=== PATIENT | male | born 1930 | race Caucasian/White ===

== ENCOUNTER 2020-11-06 12:13 | Inpatient (IN) ==
[2020-11-06] MEDS ORDERED: LEVOFLOXACIN 750 MG/150 ML BAG IV ONE (12:41)
[2020-11-06] MEDS ORDERED: VANCOMYCIN 1,000 MG in 0.9 % SODIUM CHLORIDE 250 ML IV ONE (12:41)
[2020-11-06] MEDS ORDERED: 0.9 % SODIUM CHLORIDE 1,000 ML IV ONE (12:41)
--- NOTE | 2020-11-06 13:20 | Emergency Department Note ---
HPI General Chief complaint: Recheck/Abnormal Lab/Rx Stated complaint: wound Time Seen by Provider: 11/06/20 12:41 Source: patient, family and EMS Mode of arrival: EMS Limitations: language barrier (Patient is slow to speak but is able to communicate. Son does most of his history.) History of Present Illness HPI Narrative: Narrative: 89-year-old male who is paraplegic was seen yesterday by myself. Patient had mu ltiple wounds on his right lower extremity. Patient was treated with IV Levaquin placed on p.o. Levaquin. from wound care clinic was consulted. Patient was discharged home for home health care and to follow-up with Dr. Verdugo. Blood culture results from patient from day prior to arrival are positive for 2 out of 2 with multiple organisms. Patient was brought in by his son. Patient had had fevers prior to arrival. But is otherwise without complaints. MD Complaint: Positive blood cultures 2 out of 2. Onset (ago): day(s) Location: right and lower extremity Radiation: non-radiation Severity: severe Associated symptoms: Reports fever/chills and weakness; Denies chest pain, cough, diaphoresis, headaches, loss of appetite, malaise, nausea/vomiting, rash, seizure, shortness of breath and syncope Treatments Prior to Arrival: other (Levaquin) Related Data Home Medications Medication Instructions Recorded Confirmed levothyroxine 50 mcg tablet 50 mcg PO QDAY 10/14/20 11/05/20 Previous Rx's Medication Instructions Recorded nystatin 100,000 unit/gram topical 1 applic TOPICAL BID PRN #30 g 06/07/18 powder gabapentin 600 mg tablet 600 mg PO Q6H #120 tab 09/02/20 levofloxacin 500 mg PO Q24H 7 Days #7 tab 11/05/20 Allergies Allergy/AdvReac Type Severity Reaction Status Date / Time ELLIE Inhibitors Allergy Unknown Unknown Verified 11/06/20 12:18 ARB-Angiotensin Receptor Allergy Unknown Unknown Verified 11/06/20 12:18 Antagonist diphenhydramine Allergy Unknown Lip Verified 11/06/20 12:18 [From Benadryl] swelling and rash Penicillins Allergy Unknown Hives Verified 11/06/20 12:18 ramipril [From Altace] Allergy Unknown Angioedema Verified 11/06/20 12:18 Streptokinase Allergy Unknown Unknown Verified 11/06/20 12:18 telmisartan [From Micardis] Allergy Unknown Hives Verified 11/06/20 12:18 triamcinolone [From Kenalog] Allergy Unknown Lip Verified 11/06/20 12:18 swelling and rash Review of Systems ROS ROS Narrative: Narrative: All systems ED: reviewed and negative except as stated. [facility] Narrative Patient History Narrative: Narrative: Medical/Surgical/Family History All Active Problems (Updated 11/06/20 @ 13:27 by Garth Escalona MD) Cellulitis (Acute) Blood bacterial culture positive (Acute) Altered mental status (Acute) Pressure ulcer (Acute) Productive cough (Acute) Medicare annual wellness visit, subsequent (Acute) Medicare annual wellness visit, initial (Acute) Hypothyroidism (Chronic) Dementia (Chronic) Urinary incontinence (Chronic) History of tobacco abuse (Chronic) UTI (urinary tract infection) (Chronic) History of prostate cancer (Chronic) Pressure ulcer, stage II (Chronic) Hypertension, essential (Chronic) Hyperlipidemia (Chronic) Gastric ulcer (Chronic ~11/2006) Fatigue (Chronic) Elevated PSA (Chronic) Dermatophytosis of groin (Chronic) 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 Hemphill Dementia Dermatophytosis of groin Elevated PSA followed by Dr. Pinzon Fatigue Gastric ulcer (~11/2006) WITH GI BLEED History of prostate cancer followed by Dr. Pinzon History of tobacco abuse Hyperlipidemia Hypertension, essential Hypothyroidism Incontinence Incontinent of feces Joint pain Medicare annual wellness visit, initial Medicare annual wellness visit, subsequent Paraplegia (~11/2006) T12 PARAPLEGIA WITH PERIPHERAL NEUROPATHIC PAIN Pressure ulcer Pressure ulcer, stage II Productive cough Urinary incontinence UTI (urinary tract infection) SELF- CATHETERIZATION Surgical History H/O colonoscopy 2004 H/O colonoscopy 01/23/2008 Normal colon. 3 year interval H/O toe surgery Toenail removal -left first toe d/t infection H/O transurethral resection of prostate 2004 ATYPICAL, NO EVIDENCE OF TUMOR History of back surgery 2005 History of back surgery 2009 History of esophagogastroduodenoscopy (EGD) 12/16/2006 Negative for occult carcinoma History of open reduction and internal fixation (ORIF) procedure REPAIR OF FRACTURE History of surgery 01/01/2012 EXCISION- BUTTOCKS, ULCER Family History Father Heart attack Rheumatoid arthritis Hypertension, essential Myocardial infarction acute, Onset Age: 74 Atherosclerosis Unknown Colonic polyp Mother Hypertension, essential Social History Smoking Status: Former smoker Alcohol Intake Frequency: former alcohol drinker Substance Use: does not use Exam Narrative Narrative: Narrative: General Limitations: language barrier (Patient is slow to speak but is able to communicate. Son does most of his history.) General appearance: Present alert, in no apparent distress and thin Head Head: Present atraumatic, normocephalic and normal inspection Eye Eye: Present normal appearance, PERRL and EOMI ENT ENT: Present normal oropharynx and mucous membranes dry Neck Neck: Present normal inspection and full ROM; Absent tenderness and meningismus Chest Chest: Present normal inspection and symmetric chest wall rise; Absent tenderness Respiratory Respiratory: Present normal lung sounds bilaterally; Absent respiratory distress Cardiovascular Cardiovascular: Present regular rate and normal rhythm; Absent systolic murmur Adbominal Abdominal: Present soft; Absent distention, tenderness, guarding, rebound and rigidity Extremities Extremities: Present other (Patient has multiple wounds on his right lower extremity. These were seen cleaned and dressed yesterday); Absent normal inspection, full ROM, tenderness and normal capillary refill Back Back: Present normal inspection Neurological Neurological: Present alert Psychiatric Psychiatric: Present normal affect and normal mood Skin Skin: Present cyanosis and pallor Course Vital Signs Vital signs: Vital Signs Temperature 98.1 F 11/06/20 12:14 Pulse Rate 96 H 11/06/20 12:14 Respiratory Rate 16 11/06/20 12:14 Blood Pressure 111/67 11/06/20 12:14 Pulse Oximetry (%) 98 11/06/20 12:14 Temperature 98.1 F 11/06/20 12:14 Pulse Rate 96 H 11/06/20 12:14 Respiratory Rate 16 11/06/20 12:14 Blood Pressure 111/67 11/06/20 12:14 Pulse Oximetry (%) 98 11/06/20 12:14 MDM MDM Narrative Medical decision making narrative: Narrative: Patient with 2+ blood cultures with multiple organisms. Discussed patient Dr. Meredith who requested admission with hospitalist. Patient received additional IV antibiotics repeat labs in the arterial ultrasound of the right lower extremity. Patient is nonseptic blood with positive blood cultures will need IV antibiotics I discussed patient with hospitalist Dr. De La Vega who graciously agreed to admission Lab Data Result diagrams: 11/06/20 12:55 11/06/20 12:55 Pulse Oximetry Data Pulse Ox %: 98 Interpretation: 98% on room air and within normal limits Discharge Plan Patient/Caregiver Discharge Instructions Pt seen by [facility]/PA only: No Clinical Impression: Cellulitis, Blood bacterial culture positive Patient Disposition: Xfer As Inpt ([facility]) Follow up with: Constance Cárdenas DO [Primary Care Provider] - Prescriptions: No Action gabapentin 600 mg tablet 600 mg PO Q6H Qty: 120 RF: 1 nystatin 100,000 unit/gram powder 1 applic TOPICAL BID PRN (Reason: rash) Qty: 30 RF: 0 levothyroxine 50 mcg tablet 50 mcg PO QDAY RF: 0 levofloxacin 500 mg tablet 500 mg PO Q24H 7 Days Qty: 7 RF: 0
[2020-11-06 13:34] LABS: Basophils # (Auto) 0.02 K/mcL (0.00-0.20); Basophils % (Auto) 0.2 % (0.0-2.0); Eosinophils # (Auto) 0.08 K/mcL (0.00-0.70); Eosinophils % (Auto) 0.9 % (0.0-7.0); Hematocrit 34.6 % (41.0-55.0); Hemoglobin 10.9 g/dL (13.5-16.5); Lymphocytes # (Auto) 0.72 K/mcL (1.50-4.80); Mean Cell Volume 96.4 fL (80.0-100.0); Mean Corpuscular HGB Conc 31.5 g/dL (31.0-36.0); Mean Platelet Volume 10.7 fL (7.4-10.4); Monocytes # (Auto) 0.53 K/mcL (0.10-0.90); Monocytes % (Auto) 5.9 % (1.0-12.0); Platelet Count 203 K/mcL (140-440); RBC 3.59 M/mcL (4.50-5.90); Red Cell Distribution Width 14.1 % (11.5-14.5)
[2020-11-06 13:59] LABS: ALT/SGPT 12 U/L (<40); AST/SGOT 15 U/L (<40); Albumin/Globulin Ratio 0.7 (1.0-2.3); Alkaline Phosphatase 106 U/L (39-117); Bilirubin,Total 0.4 mg/dL (0.1-1.0); Blood Urea Nitrogen 15 mg/dL (8-23); Calcium 8.8 mg/dL (8.6-10.4); Carbon Dioxide 26 mmol/L (22-30); Chloride 105 mmol/L (96-108); Globulin 4.5 gm/dL (2.2-3.7); Glomerular Filtration Rate 84; Glucose 100 mg/dL (70-105)
--- NOTE | 2020-11-06 14:32 | Internal Med History&Physical ---
HPI History of Present Illness Patient information: Note initiated : 11/06/20 at 2:28 pm Service Date, if different from initiated Date: Patient: Jaiden Wood a 89 y/o M admitted on for wound. Chief Complaint: LE wound with Positive blood culture History of present illness: Mr. Wood is a 89 year old male with Paraplegia who was seen in ED 11/05 for multiple wounds on his right lower extremity. He was given IV Levaquin and Dced home with Oral Levaquin after Wound care in ED by wound team . He was discharged home for home health care and to follow-up with Dr. Verdugo. Blood culture were drawn and came back +juan manuel 06/11 for Gram Positive Cocci In Clusters . Patient was brought in by his son. Patient had had fevers prior to arrival. But is otherwise without complaints. On evaluation today patient found to ischemia and severe cyanosis of the right toes with necrotic tissue on the right middle toes. Patient right lower extremity is cold clumsy and discolored. Patient also have ischemic ulcer on the right leg. I have discussed with emergency room physician to consult either interventional radiology or vascular surgeon at outside facility for possible stenting or reperfusion intervention. If either IR or vascular surgery recommended stenting versus surgical intervention patient will be transferred to outside facility otherwise he will be admitted to our facility. Patient has stage IV vs unstageable sacral pressure ulcer as well with foul- smelling and exposed bone. This is clinical osteomyelitis. Patient is awake alert oriented x3. He is very pleasant and denies chest pain shortness of breath nausea vomiting fever chills. I was informed by ER physician Dr.Jeffery Escalona that he consulted Dr.John Lomeli the IR at [facility] who reviewed the Arterial US and advised the finding seems chronic with collateral blood supply. Dr. Lomeli recommended aspirin and Plavix and no intervention required at this time. So I will go ahead and admit the patient Allergic/Immunologic Additional comments: Subjective fever. Lower extremity wound and pain and swelling, sacral wound. Generalized weakness. Poor appetite.. Except as documented all systems reviewed and negative PFSH PFSH All Active Problems Cellulitis (Acute) Blood bacterial culture positive (Acute) Altered mental status (Acute) Pressure ulcer (Acute) Productive cough (Acute) Medicare annual wellness visit, subsequent (Acute) Medicare annual wellness visit, initial (Acute) Hypothyroidism (Chronic) Dementia (Chronic) Urinary incontinence (Chronic) History of tobacco abuse (Chronic) UTI (urinary tract infection) (Chronic) History of prostate cancer (Chronic) Pressure ulcer, stage II (Chronic) Hypertension, essential (Chronic) Hyperlipidemia (Chronic) Gastric ulcer (Chronic ~11/2006) Fatigue (Chronic) Elevated PSA (Chronic) Dermatophytosis of groin (Chronic) 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 Hemphill Dementia Dermatophytosis of groin Elevated PSA followed by Dr. Pinzon Fatigue Gastric ulcer (~11/2006) WITH GI BLEED History of prostate cancer followed by Dr. Pinzon History of tobacco abuse Hyperlipidemia Hypertension, essential Hypothyroidism Incontinence Incontinent of feces Joint pain Medicare annual wellness visit, initial Medicare annual wellness visit, subsequent Paraplegia (~11/2006) T12 PARAPLEGIA WITH PERIPHERAL NEUROPATHIC PAIN Pressure ulcer Pressure ulcer, stage II Productive cough Urinary incontinence UTI (urinary tract infection) SELF- CATHETERIZATION Surgical History H/O colonoscopy 2004 H/O colonoscopy 01/23/2008 Normal colon. 3 year interval H/O toe surgery Toenail removal -left first toe d/t infection H/O transurethral resection of prostate 2004 ATYPICAL, NO EVIDENCE OF TUMOR History of back surgery 2006 History of back surgery 2009 History of esophagogastroduodenoscopy (EGD) 12/16/2006 Negative for occult carcinoma History of open reduction and internal fixation (ORIF) procedure REPAIR OF FRACTURE History of surgery 01/01/2012 EXCISION- BUTTOCKS, ULCER Family History Father Heart attack Rheumatoid arthritis Hypertension, essential Myocardial infarction acute, Onset Age: 74 Atherosclerosis Unknown Colonic polyp Mother Hypertension, essential Social History marital status: occupational status: retired 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 [employer] alcohol intake frequency: former alcohol drinker substance use type: does not use MEDS/ALLERGIES Home Medications and Allergies Home Medications Medication Instructions Recorded Confirmed Type gabapentin 600 mg tablet 600 mg PO Q6H #120 tab 09/02/20 11/06/20 Rx levofloxacin 500 mg PO Q24H 7 Days #7 tab 11/05/20 11/06/20 Rx Allergies Allergy/AdvReac Type Severity Reaction Status Date / Time ELLIE Inhibitors Allergy Unknown Unknown Verified 11/06/20 12:18 ARB-Angiotensin Receptor Allergy Unknown Unknown Verified 11/06/20 12:18 Antagonist diphenhydramine Allergy Unknown Lip Verified 11/06/20 12:18 [From Benadryl] swelling and rash Penicillins Allergy Unknown Hives Verified 11/06/20 12:18 ramipril [From Altace] Allergy Unknown Angioedema Verified 11/06/20 12:18 Streptokinase Allergy Unknown Unknown Verified 11/06/20 12:18 telmisartan [From Micardis] Allergy Unknown Hives Verified 11/06/20 12:18 triamcinolone [From Kenalog] Allergy Unknown Lip Verified 11/06/20 12:18 swelling and rash EXAM Constitutional Vitals: Temp Pulse Resp BP Pulse Ox 98.1 F 88 16 125/44 95 11/06/20 12:14 11/06/20 13:31 11/06/20 12:14 11/06/20 13:31 11/06/20 13:31 General appearance: cooperative, no acute distress and thin (Cachectic chronically ill-appearing elderly male in no distress) Head Head exam: Present atraumatic, normal inspection and normocephalic Eye Eye exam: Present EOMI, normal appearance and PERRL ENT ENT exam: Present mucous membranes dry Neck Neck exam: Present full ROM and normal inspection Respiratory Respiratory exam: Present normal respiratory exam and CTAB Cardiovascular Cardiovascular exam: Present normal rate and rhythm, +S1 and +S2; Absent diastolic murmur and systolic murmur GI/Abdominal GI/Abdominal exam: Present normal bowel sounds and soft; Absent hernia, mass, rebound and tenderness Extremities Exam Extremities exam: Present full ROM, joint swelling and normal inspection; Absent calf tenderness Additional comments: Patient is paraplegic with atrophic lower extremities. I am unable to palpate right dorsalis pedis, anterior and posterior tibial pulses. Patient has cyanosis and purple discoloration of all right toes with dry necrosis of right middle toe. Right foot is cold discolored and clumsy. Positive swelling. Large 20 X 8 cm stage II ulcer in the lateral aspect of the right leg. Back Exam Back exam: Present full ROM Neurological Exam Neurological exam: Present alert, CN II-XII intact, oriented X3 and reflexes normal Psychiatric Psychiatric exam: Present normal affect and normal mood Skin Skin exam: Present dry, normal color and warm Additional comments: Stage IV VS unstageable sacral decubitus ulcer 3X 4 cm, tunneling deep with exposed bone, foul-smelling DATA Data Completed and Pending Labs: Labs from last 24 hours 11/06/20 11/06/20 12:55 12:55 WBC 9.0 RBC 3.59 L Hgb 10.9 L Hct 34.6 L MCV 96.4 MCH 30.4 MCHC 31.5 RDW 14.1 Plt Count 203 MPV 10.7 H Neut % (Auto) 85.0 H Lymph % (Auto) 8.0 L [place] % (Auto) 5.9 Eos % (Auto) 0.9 Baso % (Auto) 0.2 Lymph # (Auto) 0.72 L [place] # (Auto) 0.53 Eos # (Auto) 0.08 Baso # (Auto) 0.02 Absolute Neutrophils 7.68 Sodium 143 Potassium 3.7 Chloride 105 Carbon Dioxide 26 Anion Gap 12.0 BUN 15 Creatinine 0.7 GFR Calculation 84 Glucose 100 Calcium 8.8 Total Bilirubin 0.4 AST 15 ALT 12 Alkaline Phosphatase 106 Total Protein 7.5 Albumin 3.0 L Globulin 4.5 H Albumin/Globulin Ratio 0.7 L A/P Narrative A/P Narrative: 89 years old male paraplegia Retuned to ED for sacral and right lower extremity wound. # Bacteremia with gram-positive cocci in cluster 2/2. Source likely skin/wound lower extremity -Started vancomycin and Levaquin. Surveillance blood culture has been sent -Follow identification and sensitivity of the gram-positive cocci. Consider echocardiogram to rule out infective endocarditis # Ischemic RLE ulceration and Necrosis of middle toe - On right foot exam :purple discoloration & and distal superficial femoral artery with profunda collaterals reconstituting the distal SFA, Occlusion of the proximal peroneal artery, Multiple stenoses throughout the anterior tibial and posterior tibial artery which are patent the level of the foot. - Consulted IR at [facility], who reviewed the ultrasound and recommend this is chronic and start aspirin/Plavix and no indication for intervention. -Continue IV antibiotic vancomycin/Zosyn and local wound care per Dr. Verdugo. # Stage IV vs Unstagable infected Sacral pressure injury with exposed bone #Clinical osteomyelitis -Continue vancomycin/Zosyn. Wound care as above. Patient needs debridement of the wounds # Paraplegia. 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 BMI 17. - Consult dietitian. # HLP by history. Pt is not on Statin # HTN by history. Pt is not on medication. BP stable. DVT ppx. Lovenox 40mg daily Code. Full Dispo. Inpatient Time Spent With Patient Time: Total time spent is greater than 50% in coordination of care (as documented) at patient's floor/unit and/or counseling patient:
--- NOTE | 2020-11-06 15:24 | Ultrasound Report ---
CLINICAL INFORMATION: Gang nec R lower Ext. COMPARISON: None. FINDINGS: The aorta right common iliac and right external iliac were obscured by bowel gas. Common femoral, profunda femoral and proximal superficial femoral arteries are widely patent. The mid and distal superficial femoral arteries are occluded with collateral reconstitution of the distal SFA. Diminished velocities the anterior tibial and posterior tibial arteries suggests a series of high-grade stenoses. The peroneal artery is occluded proximally IMPRESSION: 1. Aorta, common iliac and external iliac arteries are obscured with bowel gas 2. 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 3. Occlusion of the proximal peroneal artery. Multiple stenoses throughout the anterior tibial and posterior tibial artery which are patent the level of the foot. Interpreted and Authenticated by: Tristan Craig 11/06/20
[2020-11-06] MEDS ORDERED: VANCOMYCIN 1,000 MG in 0.9 % SODIUM CHLORIDE 250 ML IV SCH (17:15)
[2020-11-06] MEDS ORDERED: ACETAMINOPHEN 325 MG TABLET PO PRN (17:15)
[2020-11-06] MEDS ORDERED: LEVOFLOXACIN 500 MG/100 ML BAG IV SCH (17:15)
[2020-11-06] MEDS ORDERED: HYDROmorphone 0.5 MG/0.5 ML SYRINGE IV PRN (17:15)
[2020-11-06] MEDS ORDERED: SENNOSIDES 1 TABLET PO PRN (17:15)
[2020-11-06] MEDS ORDERED: ZOLPIDEM 5 MG TABLET PO PRN (17:15)
[2020-11-06] MEDS ORDERED: ONDANSETRON 4 MG/2 ML VIAL IV PRN (17:15)
[2020-11-06] MEDS ORDERED: ONDANSETRON 4 MG ODT TABLET SL PRN (17:15)
[2020-11-06] MEDS ORDERED: MAGNESIUM HYDROXIDE 30 ML ORAL.SUSP PO PRN (17:15)
[2020-11-06] MEDS ORDERED: CALCIUM CARBONATE 500 MG TAB.CHEW CHEWED PRN (17:15)
[2020-11-06] MEDS ORDERED: HYDROcodone/APAP 5/325MG TABLET PO PRN (17:15)
[2020-11-06] MEDS: 0.45 % SODIUM CHLORIDE 1,000 ML IV SCH (17:52)
[2020-11-06] MEDS: ENOXAPARIN 40 MG/0.4 ML SYRINGE SQ SCH (17:52)
--- NOTE | 2020-11-06 18:00 | General Surgery Consult Note ---
HPI Data of Consult Consult date: 11/06/20 Requesting physician: Kelechi De La Vega Primary Care Provider: Constance Cárdenas DO Consult Narrative Patient Information: Note initiated : 11/06/20 at 5:44 pm Service Date, if different from initiated Date: [] Patient: Jaiden Ruffin 89 y/o M admitted on 11/06/20 for wound. Chief Complaint: []WOUND CARE. Chronic Sacral decubitus ulcer and Sub acute vs Chronic Ischemic RIGHT LE. PMH: Traumatic chronic paraplegia, Dementia, H/O Prostrate cancer and Obstructive Uropathy, Chronic Malnutrition. Prior encounters with Hospice services over past few years. I saw this patient in room 128, along with Rosalba RN on 11/06/2020 ( Date of Consult ) I discussed the circumstances leading to this patient's evaluation in ER and subsequent admission to Med Surg floor. I spoke with JOVANY RUFFIN. ( Patient's son and POA ) [phone]. Jovany will come to [facility] tomorrow on 11/07/2020 around 13:00 hrs to talk about plan of care for his dad. cc:: CC: Kelechi De La Vega [facility] All Active Problems Cellulitis (Acute) Blood bacterial culture positive (Acute) Altered mental status (Acute) Pressure ulcer (Acute) Productive cough (Acute) Medicare annual wellness visit, subsequent (Acute) Medicare annual wellness visit, initial (Acute) Hypothyroidism (Chronic) Dementia (Chronic) Urinary incontinence (Chronic) History of tobacco abuse (Chronic) UTI (urinary tract infection) (Chronic) History of prostate cancer (Chronic) Pressure ulcer, stage II (Chronic) Hypertension, essential (Chronic) Hyperlipidemia (Chronic) Gastric ulcer (Chronic ~11/2006) Fatigue (Chronic) Elevated PSA (Chronic) Dermatophytosis of groin (Chronic) 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 Hemphill Dementia Dermatophytosis of groin Elevated PSA followed by Dr. Pinzon Fatigue Gastric ulcer (~11/2006) WITH GI BLEED History of prostate cancer followed by Dr. Pinzon History of tobacco abuse Hyperlipidemia Hypertension, essential Hypothyroidism Incontinence Incontinent of feces Joint pain Medicare annual wellness visit, initial Medicare annual wellness visit, subsequent Paraplegia (~11/2006) T12 PARAPLEGIA WITH PERIPHERAL NEUROPATHIC PAIN Pressure ulcer Pressure ulcer, stage II Productive cough Urinary incontinence UTI (urinary tract infection) SELF- CATHETERIZATION Surgical History H/O colonoscopy 2004 H/O colonoscopy 01/23/2008 Normal colon. 3 year interval H/O toe surgery Toenail removal -left first toe d/t infection H/O transurethral resection of prostate 2004 ATYPICAL, NO EVIDENCE OF TUMOR History of back surgery 2005 History of back surgery 2009 History of esophagogastroduodenoscopy (EGD) 12/16/2006 Negative for occult carcinoma History of open reduction and internal fixation (ORIF) procedure REPAIR OF FRACTURE History of surgery 01/01/2012 EXCISION- BUTTOCKS, ULCER Family History Father Heart attack Rheumatoid arthritis Hypertension, essential Myocardial infarction acute, Onset Age: 74 Atherosclerosis Unknown Colonic polyp Mother Hypertension, essential Social History marital status: occupational status: retired 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 [employer] alcohol intake frequency: former alcohol drinker substance use type: does not use MEDS/ALLERGIES Home Medications and Allergies Home Medications Medication Instructions Recorded Confirmed Type gabapentin 600 mg tablet 600 mg PO Q6H #120 tab 09/02/20 11/06/20 Rx levofloxacin 500 mg PO Q24H 7 Days #7 tab 11/05/20 11/06/20 Rx Allergies Allergy/AdvReac Type Severity Reaction Status Date / Time ramipril [From Altace] Allergy Severe Angioedema Verified 11/06/20 17:55 diphenhydramine Allergy Intermediate Lip Verified 11/06/20 17:55 [From Benadryl] swelling and rash triamcinolone [From Kenalog] Allergy Intermediate Lip Verified 11/06/20 17:55 swelling and rash Penicillins Allergy Mild Hives Verified 11/06/20 17:55 telmisartan [From Micardis] Allergy Mild Hives Verified 11/06/20 17:55 Streptokinase Allergy Unknown Unknown Verified 11/06/20 12:18 Physical Examination Vital Signs Vital signs: Temp Pulse Resp BP Pulse Ox 98.5 F 96 H 16 111/68 94 11/06/20 17:39 11/06/20 17:39 11/06/20 12:14 11/06/20 17:39 11/06/20 15:31 General physical appearance General physical exam: no distress, cachectic and chronically ill Eyes Eye exam: PERRL and normal ocular movement ENT ENT exam: normal pinna, normal mucosa and no congestion Head Head exam IM: Present atraumatic and normocephalic Neck Neck exam: no masses, no lymphadenopathy and no venous distension Cardiovascular Cardiovascular exam IM: Present normal rate and rhythm Peripheral pulses: 0: posterior tibialis (L) and posterior tibialis (R) and 2+: femoral (R) Respiratory Respiratory exam: normal respiratory effort and other (At his base line. Air entry over both lung tineo. NO rales. Diminished air entry bases) Abdomen Abdomen: Present soft, non tender and distended (Chronic. Cachectic. RIGHT charles in mass ?) Genitourinary Genitourinary (Male): Present normal penis with no external lesions and other (H/O Prostrate Cancer and Obstructive Uropathy. ) Integumentary Integumentary: Present other (Patchy areas of Stage 5 DTI (Black adherent necrotic skin) over Right lower medial leg, forefoot and all toes on RIGHT side. Stage 4 Sacral decubitus wound with tunneling, odor and exposed bone . CHRONIC wound) Neurologic Neurologic: Present other (Paraplegia. ) Musculoskeletal Musculoskeletal: Present other (CHRONIC shortening of LEFT lower extremity since fall and and traumatic paraplegia.) Psychiatric Psychiatric: Present other (Confused. Comfortable, Dementia ( Baseline )) Results Labs Result diagrams: 11/06/20 12:55 11/06/20 12:55 Labs: Abnormal lab results 11/06/20 11/06/20 Range/Units 12:55 12:55 RBC 3.59 L (4.50-5.90) M/mcL Hgb 10.9 L (13.5-16.5) g/dL Hct 34.6 L (41.0-55.0) % MPV 10.7 H (7.4-10.4) fL Neut % (Auto) 85.0 H (38.0-78.0) % Lymph % (Auto) 8.0 L (15.0-49.0) % Lymph # (Auto) 0.72 L (1.50-4.80) K/mcL Albumin 3.0 L (3.2-5.2) gm/dL Globulin 4.5 H (2.2-3.7) gm/dL Albumin/Globulin Ratio 0.7 L (1.0-2.3) Diabetes panel 11/06/20 Range/Units 12:55 Sodium 143 (133-145) mmol/L Potassium 3.7 (3.3-5.1) mmol/L Chloride 105 (96-108) mmol/L Carbon Dioxide 26 (22-30) mmol/L BUN 15 (8-23) mg/dL Creatinine 0.7 (0.7-1.2) mg/dL Glucose 100 (70-105) mg/dL Calcium 8.8 (8.6-10.4) mg/dL AST 15 (<40) U/L ALT 12 (<40) U/L Alkaline Phosphatase 106 (39-117) U/L Total Protein 7.5 (5.9-8.4) gm/dL Albumin 3.0 L (3.2-5.2) gm/dL Calcium panel 11/06/20 Range/Units 12:55 Calcium 8.8 (8.6-10.4) mg/dL Albumin 3.0 L (3.2-5.2) gm/dL Pituitary panel 11/06/20 Range/Units 12:55 Sodium 143 (133-145) mmol/L Potassium 3.7 (3.3-5.1) mmol/L Chloride 105 (96-108) mmol/L Carbon Dioxide 26 (22-30) mmol/L BUN 15 (8-23) mg/dL Creatinine 0.7 (0.7-1.2) mg/dL Glucose 100 (70-105) mg/dL Calcium 8.8 (8.6-10.4) mg/dL Adrenal panel 11/06/20 Range/Units 12:55 Sodium 143 (133-145) mmol/L Potassium 3.7 (3.3-5.1) mmol/L Chloride 105 (96-108) mmol/L Carbon Dioxide 26 (22-30) mmol/L BUN 15 (8-23) mg/dL Creatinine 0.7 (0.7-1.2) mg/dL Glucose 100 (70-105) mg/dL Calcium 8.8 (8.6-10.4) mg/dL Total Bilirubin 0.4 (0.1-1.0) mg/dL AST 15 (<40) U/L ALT 12 (<40) U/L Alkaline Phosphatase 106 (39-117) U/L Total Protein 7.5 (5.9-8.4) gm/dL Albumin 3.0 L (3.2-5.2) gm/dL All other labs normal. A/P Narrative A/P Narrative: Assessment: CHRONIC wounds: Positive blood c/s Likely contaminant Sacral Decubitus Stage 4. PAD / PVD Sub acute vs Chronic vaso occlusive disease (PAD) with Progressive venous thrombosis Chronic Traumatic Paraplegia ?? Metastatic Prostrate Cancer Dementia ?? Coagulopathy Plan: Supportive wound care as discussed at bed side. To discuss with POA, CM, SW Wound Care Nurse about further plan of care ??? DNR, TRADE SHOW COORDINATOR, Placement etc VS Further investigations / management priorities I will complete final consult note after all this is accomplished. Time Spent With Patient Time: Total time spent is greater than 50% in coordination of care (as docum ented) at patient's floor/unit and/or counseling patient: Total time spent with greater than 50% in coordination of care (as documented) at patient's floor/unit and/or counseling patient:: Greater than 35 minutes
[2020-11-06] MEDS: PIPERACILLIN SODIUM/TAZOBACTAM 3.375 GM in DEXTROSE 5% IN WATER 50 ML IV SCH ×2 (18:40→23:56)
[2020-11-06] MEDS: DOCUSATE SODIUM 100 MG CAPSULE PO SCH (20:35)
[2020-11-06] MEDS: GABAPENTIN 300 MG CAPSULE PO SCH (20:35)
[2020-11-06] MEDS: 0.9 % SODIUM CHLORIDE 10 ML SYRINGE IV SCH (20:35)
[2020-11-06] MEDS ORDERED: VANCOMYCIN PER PHARMACY IV SCH (20:45)
[2020-11-07] MEDS: 0.45 % SODIUM CHLORIDE 1,000 ML IV SCH (04:03)
[2020-11-07] MEDS: PIPERACILLIN SODIUM/TAZOBACTAM 3.375 GM in DEXTROSE 5% IN WATER 50 ML IV SCH ×4 (05:52→23:09)
[2020-11-07] MEDS: 0.9 % SODIUM CHLORIDE 10 ML SYRINGE IV SCH ×3 (05:52→23:09)
[2020-11-07 06:33] LABS: Basophils # (Auto) 0.02 K/mcL (0.00-0.20); Basophils % (Auto) 0.3 % (0.0-2.0); Eosinophils # (Auto) 0.15 K/mcL (0.00-0.70); Eosinophils % (Auto) 2.5 % (0.0-7.0); Hematocrit 27.4 % (41.0-55.0); Hemoglobin 8.3 g/dL (13.5-16.5); Lymphocytes # (Auto) 0.63 K/mcL (1.50-4.80); Lymphocytes % (Auto) 10.3 % (15.0-49.0); Mean Cell Volume 98.6 fL (80.0-100.0); Mean Corpuscular HGB Conc 30.3 g/dL (31.0-36.0); Mean Platelet Volume 10.6 fL (7.4-10.4); Monocytes # (Auto) 0.45 K/mcL (0.10-0.90); Monocytes % (Auto) 7.4 % (1.0-12.0); Neutrophils % (Auto) 79.5 % (38.0-78.0); Platelet Count 135 K/mcL (140-440); RBC 2.78 M/mcL (4.50-5.90); Red Cell Distribution Width 14.1 % (11.5-14.5); WBC 6.1 K/mcL (4.5-11.0)
[2020-11-07 07:01] LABS: Blood Urea Nitrogen 12 mg/dL (8-23); Calcium 7.6 mg/dL (8.6-10.4); Carbon Dioxide 26 mmol/L (22-30); Chloride 110 mmol/L (96-108); Glomerular Filtration Rate 90; Glucose 87 mg/dL (70-105)
[2020-11-07] MEDS: ENOXAPARIN 40 MG/0.4 ML SYRINGE SQ SCH (08:45)
[2020-11-07] MEDS: DOCUSATE SODIUM 100 MG CAPSULE PO SCH ×2 (08:45→20:47)
[2020-11-07] MEDS: GABAPENTIN 300 MG CAPSULE PO SCH ×4 (08:45→20:48)
[2020-11-07] MEDS: VANCOMYCIN 1,000 MG in 0.9 % SODIUM CHLORIDE 250 ML IV SCH (08:57)
--- NOTE | 2020-11-07 13:26 | General Surgery Progress Note ---
SUBJECTIVE Subjective Patient information: Note initiated : 11/07/20 at 1:23 pm Service Date, if different from initiated Date: [] Patient: Jaiden Wood 89 y/o M admitted on 11/06/20 for wound. Chief Complaint: [] Additional PMFSH (Level 3 Only): Patient had an uneventful night. In his usual state of health. All his needs are met. Constitutional Vitals: Vital Signs Temp Pulse Resp BP Pulse Ox 96.8 F L 71 16 84/54 99 11/07/20 07:24 11/07/20 07:24 11/07/20 07:24 11/07/20 07:24 11/07/20 07:24 Period Temp Pulse Resp BP Sys/Talbot Pulse Ox Last 24 Hr 96.8 F-98.5 F 71-96 16-16 84-125/44-80 92-99 Intake and Output 11/06/20 11/07/20 11/07/20 21:59 05:59 13:59 Intake Total 1930 1150 300 Output Total 4 Balance 1930 1146 300 Weight 142 lb 3.2 oz 143 lb 14.4 oz Intake & Output: Intake & Output 11/06/20 11/07/20 11/07/20 21:59 05:59 13:59 Intake Total 1930 1150 300 Output Total 4 Balance 1930 1146 300 Weight 142 lb 3.2 oz 143 lb 14.4 oz Intake: IV 1450 1050 300 Sodium Chloride 0.45% 1,000 ml 1000 @ 100 mls/hr IV .Q10H JOHNSON Rx#: [id number] Sodium Chloride 0.9% 1,000 ml @ 1000 Wide Open IV .Q0M ONE Rx#: [id number] Zosyn 3.375 gm In Dextrose 5% 50 50 50 in Water 50 ml @ 100 mls/hr IV Q6H JOHNSON Rx#:[id number] Vancomycin 1,000 mg In Sodium 250 250 Chloride 0.9% 250 ml @ 250 mls/ hr IV Q24H JOHNSON Rx#:[id number] Oral 480 100 Output: # of times incontinent of urine 4 Other: Meal Dinner Percent of Meal Consumed 30% Feeding Ability Assist with Tray Set Up Stool Size Small Stool Color Brown # of times incontinent of 1 Bowels Exam: NO changes in MILES or wounds. A/P Narrative A/P Narrative: Assessment: No changes in clinical examination. All his needs are met. Met with Son and grandson along wit CM, SW, Hospitalist staff and nurses. Patient's family ( Son and Grandson ) request DNR and Comfort measures only. Plan: No aggressive investigations, IV antibiotics on other interventions. COMFORT measures only and DNR. On going wound care to continue. ( See wound care orders ) Hospice or Discharge / Transfer orders per SW, CM or Hospitalist P vivi.. Time Spent With Patient Time: Total time spent is greater than 50% in coordination of care (as documented) at patient's floor/unit and/or counseling patient: Total time spent with greater than 50% in coordination of care (as documented) at patient's floor/unit and/or counseling patient:: 15 - 24 minutes
--- NOTE | 2020-11-07 14:36 | Internal Med Progress Note ---
SUBJECTIVE Subjective Patient information: Note initiated : 11/07/20 at 2:28 pm Service Date, if different from initiated Date: [] Patient: Jaiden Wood 89 y/o M admitted on 11/06/20 for wound. Chief Complaint: LE pain , swelling and black discoloration Interval history: Pt is comfortable. Pain is controlled. He had family meeting with patient's son who decided to proceed with hospice care. Constitutional Vitals: Vital Signs Temp Pulse Resp BP Pulse Ox 96.8 F L 71 16 84/54 99 11/07/20 07:24 11/07/20 07:24 11/07/20 07:24 11/07/20 07:24 11/07/20 07:24 Period Temp Pulse Resp BP Sys/Talbot Pulse Ox Last 24 Hr 96.8 F-98.5 F 71-96 16-16 84-111/53-80 92-99 Intake and Output 11/07/20 11/07/20 11/07/20 05:59 13:59 21:59 Intake Total 1150 350 Output Total 4 Balance 1146 350 Weight 65.272 kg 65.272 kg Patient Weight 11/08/20 05:59 Weight 65.272 kg Intake & Output: Intake & Output 11/07/20 11/07/20 11/07/20 05:59 13:59 21:59 Intake Total 1150 350 Output Total 4 Balance 1146 350 Weight 65.272 kg 65.272 kg Intake: IV 1050 350 Sodium Chloride 0.45% 1,000 ml 1000 @ 100 mls/hr IV .Q10H [facility] Rx#: [id number] Zosyn 3.375 gm In Dextrose 5% 50 100 in Water 50 ml @ 100 mls/hr IV Q6H [facility] Rx#:[id number] Vancomycin 1,000 mg In Sodium 250 Chloride 0.9% 250 ml @ 250 mls/ hr IV Q24H [facility] Rx#:[id number] Oral 100 Output: # of times incontinent of urine 4 Other: Stool Size Small Stool Color Brown # of times incontinent of 1 Bowels Additional findings Additional [facility]: [facility] [address] [place], [place] [address]DOB: 1930 [address]Service Date:11/06/20 Admit Date: 11/06/20 [place], [place] [address]Olsjtk # [id number] MoisehaileeKelechi M.D. MR #: [id number] Internal Med History&PhysicalSigned HPI History of Present Illness Patient information: Note initiated : 11/06/20 at 2:28 pm Service Date, if different from initiated Date: Patient: Jaiden Wood 89 y/o M admitted on for wound. Chief Complaint: LE wound with Positive blood culture History of present illness: Mr. Wood is a 89 year old male with Paraplegia who was seen in ED 11/05 for multiple wounds on his right lower extremity. He was given IV Levaquin and Dced home with Oral Levaquin after Wound care in ED by wound team . He was discharged home for home health care and to follow-up with Dr. Verdugo. Blood culture were drawn and came back +juan manuel 06/11 for Gram Positive Cocci In Clusters . Patient was brought in by his son. Patient had had fevers prior to arrival. But is otherwise without complaints. On evaluation today patient found to ischemia and severe cyanosis of the right toes with necrotic tissue on the right middle toes. Patient right lower extremity is cold clumsy and discolored. Patient also have ischemic ulcer on the right leg. I have discussed with emergency room physician to consult either interventional radiology or vascular surgeon at outside facility for possible stenting or reperfusion intervention. If either IR or vascular surgery recommended stenting versus surgical intervention patient will be transferred to outside facility otherwise he will be admitted to our facility. Patient has stage IV vs unstageable sacral pressure ulcer as well with foul- smelling and exposed bone. This is clinical osteomyelitis. Patient is awake alert oriented x3. He is very pleasant and denies chest pain shortness of yulissa ath nausea vomiting fever chills. I was informed by ER physician Dr.Jeffery Escalona that he consulted Dr.John Lomeli the IR at [facility] who reviewed the Arterial US and advised the finding seems chronic with collateral blood supply. Dr. Lomeli recommended aspirin and Plavix and no intervention required at this time. So I will go ahead and admit the patient Allergic/Immunologic Additional comments: Subjective fever. Lower extremity wound and pain and swelling, sacral wound. Generalized weakness. Poor appetite.. Except as documented all systems reviewed and negative PFSH PFSH All Active Problems Cellulitis (Acute) Blood bacterial culture positive (Acute) Altered mental status (Acute) Pressure ulcer (Acute) Productive cough (Acute) Medicare annual wellness visit, subsequent (Acute) Medicare annual wellness visit, initial (Acute) Hypothyroidism (Chronic) Dementia (Chronic) Urinary incontinence (Chronic) History of tobacco abuse (Chronic) UTI (urinary tract infection) (Chronic) History of prostate cancer (Chronic) Pressure ulcer, stage II (Chronic) Hypertension, essential (Chronic) Hyperlipidemia (Chronic) Gastric ulcer (Chronic ~11/2006) Fatigue (Chronic) Elevated PSA (Chronic) Dermatophytosis of groin (Chronic) 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 Hemphill Dementia Dermatophytosis of groin Elevated PSA followed by Dr. Pinzon Fatigue Gastric ulcer (~11/2006) WITH GI BLEED History of prostate cancer followed by Dr. Pinzon History of tobacco abuse Hyperlipidemia Hypertension, essential Hypothyroidism Incontinence Incontinent of feces Joint pain Medicare annual wellness visit, initial Medicare annual wellness visit, subsequent Paraplegia (~11/2006) T12 PARAPLEGIA WITH PERIPHERAL NEUROPATHIC PAIN Pressure ulcer Pressure ulcer, stage II Productive cough Urinary incontinence UTI (urinary tract infection) SELF- CATHETERIZATION Surgical History H/O colonoscopy 2004 H/O colonoscopy 01/23/2008 Normal colon. 3 year interval H/O toe surgery Toenail removal -left first toe d/t infection H/O transurethral resection of prostate 2005 ATYPICAL, NO EVIDENCE OF TUMOR History of back surgery 2006 History of back surgery 2009 History of esophagogastroduodenoscopy (EGD) 12/16/2006 Negative for occult carcinoma History of open reduction and internal fixation (ORIF) procedure REPAIR OF FRACTURE History of surgery 01/01/2012 EXCISION- BUTTOCKS, ULCER Family History Father Heart attack Rheumatoid arthritis Hypertension, essential Myocardial infarction acute, Onset Age: 74 Atherosclerosis Unknown Colonic polyp Mother Hypertension, essential Social History marital status: occupational status: retired 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 [employer] alcohol intake frequency: former alcohol drinker substance use type: does not use MEDS/ALLERGIES Home Medications and Allergies Home Medications Medication Instructions Recorded Confirmed Type gabapentin 600 mg tablet 600 mg PO Q6H #120 tab 09/02/20 11/06/20 Rx levofloxacin 500 mg PO Q24H 7 Days #7 tab 11/05/20 11/06/20 Rx Allergies Allergy/AdvReac Type Severity Reaction Status Date / Time ELLIE Inhibitors Allergy Unknown Unknown Verified 11/06/20 12:18 ARB-Angiotensin Receptor Allergy Unknown Unknown Verified 11/06/20 12:18 Antagonist diphenhydramine Allergy Unknown Lip Verified 11/06/20 12:18 [From Benadryl] swelling and rash Penicillins Allergy Unknown Hives Verified 11/06/20 12:18 ramipril [From Altace] Allergy Unknown Angioedema Verified 11/06/20 12:18 Streptokinase Allergy Unknown Unknown Verified 11/06/20 12:18 telmisartan [From Micardis] Allergy Unknown Hives Verified 11/06/20 12:18 triamcinolone [From Kenalog] Allergy Unknown Lip Verified 11/06/20 12:18 swelling and rash EXAM Constitutional Vitals: Temp Pulse Resp BP Pulse Ox 98.1 F 88 16 125/44 95 11/06/20 12:14 11/06/20 13:31 11/06/20 12:14 11/06/20 13:31 11/06/20 13:31 General appearance: Pleasant cachectic chronically ill-appearing elderly male in no distress ENT exam: Present mucous membranes dry Neck exam: Present full ROM and normal inspection Respiratory exam: Present normal respiratory exam and CTAB Cardiovascular exam: Present normal rate and rhythm, +S1 and +S2; Absent diastolic murmur and systolic murmur GI/Abdominal exam: Present normal bowel sounds and soft; Absent hernia, mass, rebound and tenderness Extremities exam: Present full ROM, joint swelling and normal inspection; Absent calf tenderness, Patient is paraplegic with atrophic lower extremities. I am unable to palpate right dorsalis pedis, anterior and posterior tibial pulses. Patient has cyanosis and purple discoloration of all right toes with dry necrosis of right middle toe. Right foot is cold discolored and clumsy. Positive swelling. Large 20 X 8 cm stage II ulcer in the lateral aspect of the right leg. Neurological exam: Present alert, CN II-XII intact, oriented X3 and reflexes normal Psychiatric exam: Present normal affect and normal mood Skin exam: Present dry, normal color and warm Additional comments: Stage IV VS unstageable sacral decubitus ulcer 3X 4 cm, tunneling deep with exposed bone, foul-smelling OBJ DATA Labs CBC & Chem 7: 11/07/20 05:29 11/07/20 05:29 Labs: Abnormal Lab Results 11/07/20 11/07/20 11/06/20 05:29 05:29 12:55 RBC 2.78 L Hgb 8.3 L Hct 27.4 L MCHC 30.3 L Plt Count 135 L MPV 10.6 H Neut % (Auto) 79.5 H Lymph % (Auto) 10.3 L Lymph # (Auto) 0.63 L Chloride 110 H Anion Gap 6.0 L Creatinine 0.6 L Calcium 7.6 L Albumin 3.0 L Globulin 4.5 H Albumin/Globulin Ratio 0.7 L 11/06/20 12:55 RBC 3.59 L Hgb 10.9 L Hct 34.6 L MCHC Plt Count MPV 10.7 H Neut % (Auto) 85.0 H Lymph % (Auto) 8.0 L Lymph # (Auto) 0.72 L Chloride Anion Gap Creatinine Calcium Albumin Globulin Albumin/Globulin Ratio Meds: Medications Acetaminophen (Acetaminophen 325 Mg Tablet) 650 mg PO Q6HP PRN; Protocol PRN Reason: Per Pain Protocol/Fever > 101 Hydrocodone Bitart/Acetaminophen (Hydrocodone/Apap 5/325mg Tablet) 1 tab PO Q4HP PRN; Protocol PRN Reason: Per Pain Protocol Calcium Carbonate/Glycine (Calcium Carbonate 500 Mg Tab.Chew) 1,000 mg CHEWED Q4HP PRN PRN Reason: Dyspepsia Docusate Sodium (Docusate Sodium 100 Mg Capsule) 100 mg PO BID [facility] Last Admin: 11/07/20 08:45 Dose: 100 mg Documented by: Enoxaparin Sodium (Enoxaparin 40 Mg/0.4 Ml Syringe) 40 mg SQ DAILY [facility] Last Admin: 11/07/20 08:45 Dose: 40 mg Documented by: Gabapentin (Gabapentin 300 Mg Capsule) 600 mg PO QID [facility] Last Admin: 11/07/20 12:18 Dose: 600 mg Documented by: Hydromorphone HCl (Hydromorphone 0.5 Mg/0.5 Ml Syringe) 0.5 mg IV Q2HP PRN; Protocol PRN Reason: Per Pain Protocol Piperacillin Sod/Tazobactam (Sod 3.375 gm/ Dextrose) 50 mls @ 100 mls/hr IV Q6H [facility]; Protocol Last Infusion: 11/07/20 12:50 Dose: Infused Documented by: Vancomycin HCl 1,000 mg/ (Sodium Chloride) 250 mls @ 250 mls/hr IV Q24H [facility]; Protocol Last Infusion: 11/07/20 10:09 Dose: Infused Documented by: Magnesium Hydroxide (Magnesium Hydroxide 30 Ml Oral.Susp) 30 ml PO DAILYP PRN PRN Reason: Constipation Ondansetron HCl (Ondansetron 4 Mg/2 Ml Vial) 4 mg IV Q6HP PRN PRN Reason: Nausea And Vomiting Ondansetron HCl (Ondansetron 4 Mg Odt Tablet) 4 mg SL Q6HP PRN PRN Reason: Nausea And Vomiting Senna (Sennosides 1 Tablet) 2 tab PO HS PRN PRN Reason: constipation Sodium Chloride (0.9 % Sodium Chloride 10 Ml Syringe) 10 ml IV Q8 [facility] Last Admin: 11/07/20 05:52 Dose: Not Given Documented by: Vancomycin HCl (Vancomycin Per Pharmacy) 1 order IV UD [facility] Zolpidem Tartrate (Zolpidem 5 Mg Tablet) 5 mg PO HSP PRN PRN Reason: Insomnia A/P Narrative A/P Narrative: 89 years old male paraplegia Retuned to ED for sacral and right lower extremity wound. # Bacteremia with gram-positive cocci in cluster 2/2. Source likely skin/wound lower extremity - Cont Vancomycin / Levaquin. Surveillance blood culture 11/06 NgTD -Follow identification and sensitivity of the gram-positive cocci. Change to Oral and Rx 7-10 days after I&S. # Ischemic RLE ulceration and Necrosis of middle toe - On right foot exam :purple discoloration & and distal superficial femoral artery with profunda collaterals reconstituting the distal SFA, Occlusion of the proximal peroneal artery, Multiple stenoses throughout the anterior tibial and posterior tibial artery which are patent the level of the foot. - Consulted IR at [facility], who reviewed the ultrasound and recommend this is chronic and start aspirin/Plavix and no indication for intervention. -Continue IV antibiotic vancomycin/Zosyn and local wound care per Dr. Verdugo. - Family meeting with pt's Son who wants Hospice. No agrressive care. # Stage IV vs Unstagable infected Sacral pressure injury with exposed bone #Clinical osteomyelitis -Continue Abbx as above. Wound care as above. # Paraplegia. 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 BMI 17. - Consulted dietitian. # HLP by history. Pt is not on Statin # HTN by history. Pt is not on medication. BP stable. DVT ppx. Lovenox 40mg daily Code. Full Dispo. Inpatient Discharge home with Hospice once arranged. Then we can change Anbx to PO and Rx for 7-10 days. Plan of care discussed with patient his family and nursing staff. tax services manager as well. Time Spent With Patient Time: Total time spent is greater than 50% in coordination of care (as documented) at patient's floor/unit and/or counseling patient:
[2020-11-08] MEDS: 0.9 % SODIUM CHLORIDE 10 ML SYRINGE IV SCH (05:51)
[2020-11-08] MEDS: PIPERACILLIN SODIUM/TAZOBACTAM 3.375 GM in DEXTROSE 5% IN WATER 50 ML IV SCH (05:51)
[2020-11-08] MEDS: ENOXAPARIN 40 MG/0.4 ML SYRINGE SQ SCH (08:35)
[2020-11-08] MEDS: DOCUSATE SODIUM 100 MG CAPSULE PO SCH (08:35)
[2020-11-08] MEDS: GABAPENTIN 300 MG CAPSULE PO SCH (08:35)
[2020-11-08] MEDS: VANCOMYCIN 1,000 MG in 0.9 % SODIUM CHLORIDE 250 ML IV SCH (09:17)
--- NOTE | 2020-11-08 09:31 | Discharge Summary ---
Discharge Provider Provider Patient information: Note initiated : 11/08/20 at 9:24 am Service Date, if different from initiated Date: [] Patient: Jaiden Wood 89 y/o M admitted on 11/06/20 for wound. Chief Complaint: LE wound and black discoloratioin Date of admission: 11/06/20 16:33 Discharge date: 11/08/20 Primary care physician: Constance Cárdenas DO Consults: 11/06/20 12:59 Consult to Physician [CONS] Stat Comment: Consulting Provider: Kelechi De La Vega Reason For Exam: Physician to Consult 11/06/20 13:13 Consult to Physician [CONS] Stat Comment: Consulting Provider: Marquise Verdugo Reason For Exam: Physician to Consult Discharge Meds Discharge Medications Home Medications gabapentin 600 mg tablet 600 mg PO Q6H #120 tab 09/02/20 [Rx Confirmed 11/06/20 Last Taken Unknown] doxycycline hyclate 100 mg PO QDAY #20 tab 11/08/20 [Rx Last Taken Unknown] hydrocodone-acetaminophen 1 tab PO Q4HP PRN #25 tab 11/08/20 [Rx Last Taken Unknown] sennosides [Senna Lax] 2 tab PO HS PRN #30 tab 11/08/20 [Rx Last Taken Unknown] COURSE Hospital Course Hospital course: 89 years old male paraplegia Retuned to ED for sacral and right lower extremity wound. Family meeting were held with patient's son who is power of employment attorney and they decided to proceed with hospice at home. Patient's brief hospital course is as following. # Bacteremia with Coagulase Neg Staph 2/2 on 11/04/20. Most likely contamination. - Repeat Bx 11/06 1/2 Gram Positive Cocci. -The patient was admitted and started on vancomycin /Zosyn. Surveillance blood culture 11/06 grew gram-positive cocci 1/2 -Patient son decided to change his father's status to comfort care/hospice. Patient discharged home with home hospice. -Given infected stage IV sacral decubitus ulcer, I started doxycycline 100 mg twice daily for 10 days for patient's comfort since infection is uncomfortable condition for patient. # Ischemic RLE ulceration and Necrosis of middle toe - On right foot exam :purple discoloration & and distal superficial femoral artery with profunda collaterals reconstituting the distal SFA, Occlusion of the proximal peroneal artery, Multiple stenoses throughout the anterior tibial and posterior tibial artery which are patent the level of the foot. - Consulted IR at [facility], who reviewed the ultrasound and recommend this is chronic and start aspirin/Plavix and no indication for intervention. -Continue IV antibiotic vancomycin/Zosyn and local wound care per Dr. Verdugo. - Family meeting with pt's Son who wants Hospice. Patient discharged home with home hospice # Stage IV vs Unstagable infected Sacral pressure injury with exposed bone #Clinical osteomyelitis -Wound care for comfort # Paraplegia. 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 BMI 17. - Consulted dietitian. Continue pleasure diet # HLP by history. Pt is not on Statin # HTN by history. Pt is not on medication. BP stable. Code. DNR/DNI Disposition: Discharge home with Hospice . Condition on discharge: Hemodynamically stable. Tolerated p.o. Discharge activity: As tolerated Discharge diet: Pleasure diet Discharge medication: See med reconciliation form Discharge follow-up: Hospice. Continue wound care for comfort Total time of discharge 36 minutes Plan of care discussed with patient his family and nursing staff. client services account manager as well. Discharge diagnosis: Ischemic RLE ulcer, Stage IV sacral Pressure injury. Time Spent with Patient Time attestation: Total time spent providing and/or coordinating discharge services: EXAM Constitutional Vitals: Temp Pulse Resp BP Pulse Ox 98 F 72 16 100/60 96 11/08/20 07:19 11/08/20 07:19 11/08/20 07:19 11/08/20 07:19 11/08/20 07:19 Discharge Data Data Completed and Pending Labs on day of discharge: Labs from last 24 hours 11/08/20 07:52 Vancomycin Trough 11.8 Preliminary micro results at discharge 11/06/20 12:56 Blood Culture - Preliminary Blood Gram positive cocci 11/06/20 12:55 Blood Culture - Preliminary Blood Discharge Plan Patient/Caregiver Discharge Instructions Activity: increase activity as tolerated Diet: Regular Diet Instructions: Bacteremia (DC) Activity Restrictions/Additional Instructions: Activity as tolerated. Regular diet as tolerated. You will have [facility] ([phone]). This discharge packet is provided to you to help keep you informed about your care. We want to ensure you get everything you need when you go home. You will also be receiving a call from us in a few days to follow up with you and see how you are doing since your discharge. This gives us a chance to listen to any concerns you maybe experiencing since you were discharged or any additional needs you may have, as well as providing us feedback on your care experience. We strive to always provide excellent care and thank you for your feedback and for choosing [facility]. Prescriptions: New sennosides [Senna Lax] 8.6 mg Tablet 2 tab PO HS PRN (Reason: constipation) Qty: 30 RF: 0 hydrocodone-acetaminophen 5-325 mg Tablet 1 tab PO Q4HP PRN (Reason: Per Pain Protocol) Qty: 25 RF: 0 doxycycline hyclate 100 mg tablet 100 mg PO QDAY Qty: 20 RF: 0 Continued gabapentin 600 mg tablet 600 mg PO Q6H Qty: 120 RF: 1 Discontinued levofloxacin 500 mg tablet 500 mg PO Q24H 7 Days Qty: 7 RF: 0 Other Ambulatory Orders: Wound Care Instructions (CONT) Location: None Selected Ordered By: Marquise Verdugo Follow Up Plan Follow up with: Constance Cárdenas DO [Primary Care Provider] - (as needed.) Patient Disposition: Hospice - Home Prognosis: Fair Discharge Orders: Discharge Order (Routine); Ordered 11/08/20 Ordered By: Kelechi De La Vega
== END 2020-11-08 13:35 | disposition hospice, home (50) | DRG 299 ==
LOC: ED 12:13 → MEDSUR 16:33
PROVIDERS: ADMIT Internal Medicine; ATTEND Internal Medicine